=== PATIENT | female | born 1955 | race Caucasian/White ===

== ENCOUNTER 2016-11-17 13:05 | Outpatient (CLI) ==
--- NOTE | 2016-11-17 15:19 | DI ---
EXAM: Three views of the thoracic spine HISTORY: Back pain. COMPARISON: Chest x-ray 01/09/2016 FINDINGS: The thoracic spine demonstrates kyphosis with compression fracture at T9 superior endplate which was not identified on prior chest x-ray. There is a questionable new superior endplate deform ity at T12 not present on prior chest x-ray. The wedge deformity at T6, T7 and T8 are unchanged. Th e lungs are hyperinflated IMPRESSION: 1. New mild compression deformity at T9 which is new since Chest x-ray 01/09/2016. Questionable mil d superior endplate deformity at T12 is also new in comparison to prior study. 2. Compression deformities from T6-T8 are unchanged from prior chest x-ray.
--- NOTE | 2016-11-17 15:19 | DI ---
EXAM: Cervical spine three view HISTORY: Dorsalgia COMPARISON: None TECHNIQUE: Three views cervical spine were performed FINDINGS: Evaluation limited due to accentuated kyphosis. C6 is poorly visualized on the lateral v iew and C7 is not visualized on the lateral view. Visualized vertebral bodies normal height. No fr acture visualized. No subluxation. Multilevel facet and uncovertebral hypertrophy. Prevertebral s oft tissues appear normal. Bilateral carotid vascular calcifications. IMPRESSION: Chronic discogenic degenerative disease and facet arthrosis. Evaluation limited due to accentuated kyphosis. C6 poorly visualized and C7 not visualized on the lateral view.
--- NOTE | 2016-11-17 15:22 | DI ---
EXAM: Radiographs, lumbar spine HISTORY: Back pain. COMPARISON: None available. TECHNIQUE: Three views. FINDINGS: The bones are demineralized which limit evaluation fracture. Alignment is normal. Mild superior endplate compression deformity of L4 noted. There appear to be mild compression deformitie s of T12 and L1. No subluxation identified. Disc heights are normal. Mild multilevel facet arthrop athy is present. There is nonspecific gaseous distension of the colon. Air seen throughout multipl e small bowel loops with air-fluid levels present. Atherosclerotic calcifications noted. IMPRESSION: 1. Age indeterminate mild compression deformities of T12, L1 and L4. 2. Mild facet arthropathy. 3. Nonspecific bowel gas pattern. Follow-up as warranted.
== END 2016-11-17 13:06 | disposition home or self-care (01) ==
LOC: RAD 13:05
PROVIDERS: ATTEND Physician Assistant Medical
DX: M54.9 Dorsalgia, unspecified (principal)

== ENCOUNTER 2017-01-17 12:45 | Outpatient (CLI) ==
--- NOTE | 2017-01-18 02:40 | MRI ---
EXAM: MRI lumbar spine without IV contrast. DATE: 17 January 2017. HISTORY: Low back pain. TECHNIQUE: Sagittal and axial T1W and T2W sequences of the lumbar spine along with sagittal IR and coronal T2W sequences were obtained using 1.2 Nell magnet. No IV contrast. COMPARISON: LS spine series 11/17/2016. T-spine series 17 November 2016. PA/lateral chest 09 January 2016. FINDINGS: There are five [id number] lumbar vertebral. Endplate indentations, horizontal fract ure lines (T1W dark bands), adjacent marrow hyperintensity, and vertebral body height loss (especial ly centrally) are observed at each vertebral from T11 through L5. Most of the vertebra and minimal to mild height loss, although there is moderate central height loss at L1 and L4. T1W bone marrow s ignal is brighter than typically seen. Intervertebral discs are normal in height. A minor horizont al fracture line is identified near the anterior aspect of the superior endplate of S1. No other sa cral fracture is detected. SI joints are unremarkable. Conus medullaris terminates at L1-2. Visib le spinal cord is normal. Small retroperitoneal lymph nodes are observed without definitive lymphadenopathy. There is no aort ic aneurysm. Atherosclerotic plaques are present in the aortic wall. Psoas muscles are normal. Th ere is moderate bilateral posterior paraspinal muscle atrophy. Visible portions of the gallbladder, spleen, and adrenal glands are unremarkable. A T2W bright, T1W dark, 5 mm subcapsular focus in the anterior cortex upper pole right kidney is likely a cyst. A T2W bright, T1W dark, 7 mm subcapsular focus in the posterior cortex upper pole left kidney is likely a benign cyst. T2W bright 5.8 cm fo cus appears to extend off the anterior cortex midzone/lower pole left kidney. A T2W bright, 6.7 mm focus between the IVC and aorta at the T12 level may represent enlargement of a lymphatic duct. On c oronal sequence, the right lobe liver appears to measure 18.7 cm in length. No bowel obstruction or neoplasm is identified. Segmental analysis: T11-12: Sagittal images reveal minor posterior cortical buckling at the superior endplate of T12, b ut no cord compression or central stenosis. Minimal right and mild left foraminal narrowing is note d. T12-L1: Posterior cortical buckling near the L1 superior endplate does not contact the cord or caus e central stenosis. Each foramen is patent. L1-2: Minor posterior cortical buckling near the superior endplate of L2 does not cause conus compr ession or central stenosis. Minor right foraminal narrowing is due to minor facet arthropathy. L2-3: Minimal bilateral foraminal to far lateral disc bulges do not cause central stenosis or signi ficant foraminal stenosis. L3-4: Minimal bilateral foraminal to far lateral disc bulges, mild facet arthropathy and mild ligam entum flavum hypertrophy cause minor bilateral foraminal narrowing. No central canal stenosis. L4-5: Small concentric disc bulge, minor posterior cortical buckling at the inferior endplate of L4 , minor facet arthropathy and mild ligamentum flavum hypertrophy cause minor right and mild left for aminal stenoses. No central canal stenosis. L5-S1: Minimal posterior to foraminal disc bulge and minor facet disease cause minor right and mini mal/mild left foraminal narrowing. No central canal stenosis. IMPRESSIONS: 1. Subcortical endplate fractures at each level from T11 to S1 are subacute to early chronic. The most recent fracture appears to be near the L3 superior endplate. 2. Marrow signal suspicious for osteoporosis. 3. No lumbar spine central canal stenosis. 4. Multilevel foraminal narrowing (minor/mild). 5. Marked abdominal aortic atherosclerosis. 6. Bilateral renal lesions - likely benign cysts. 7. Hepatomegaly - etiology uncertain. 8. Possible mildly dilated retroperitoneal lymphatic duct at T12.
== END 2017-01-17 12:46 | disposition home or self-care (01) ==
LOC: RAD 12:45
PROVIDERS: ATTEND Nurse Practitioner
DX: M54.5 Low back pain (principal)

== ENCOUNTER 2017-02-11 12:54 | Outpatient (CLI) ==
--- NOTE | 2017-02-11 13:40 | DEXA ---
EXAM: Bone Densitometry DEXA HISTORY: Unspecified fracture of unspecified lumbar, initial encounter for close fracture COMPARISON: None FINDINGS: DEXA scan of the lumbar spine was performed. Quality of the study is good. Bone mineral density is 0.694 grams per square centimeter. T-score is negative 4.1. Z-score is negative 1.8. DEXA scan right and left hip was performed. Quality of the study is good. Bone mineral density lida n total is 0. 502 grams per square centimeter. T-score is negative 4.0. Z-score is negative 2.4. B one mineral density of the femoral neck mean is 0.529 with a T score of negative 3.7 and a Z score o f negative 1.8. IMPRESSION: 1. Lumbar spine: Osteoporosis. 2. Left hip: Osteoporosis 3. Left femoral neck: Osteoporosis 4. 10 year risk for major osteoporotic fracture is 29.2% and for hip fracture is 13.9%. Reference Values according to World Health Organization criteria: T score greater than -1 is normal T score -1 to -2.5 is osteopenia T score less than -2.5 is osteoporosis.
== END 2017-02-11 12:55 | disposition home or self-care (01) ==
LOC: RAD 12:54
PROVIDERS: ATTEND Physician Assistant Medical
DX: S32.009A Unspecified fracture of unspecified lumbar vertebra, initial encounter for closed fracture (principal)

== ENCOUNTER 2017-05-05 11:58 | Outpatient (CLI) ==
--- NOTE | 2017-05-05 12:29 | DI ---
EXAM: Chest two view, frontal and lateral views. HISTORY: Chronic obstructive pulmonary disease. COMPARISON: 01/09/2016. FINDINGS: Heart size is normal. Lungs are hyperexpanded with increased interstitial markings. No consolidation, pleural effusion or pneumothorax identified. Compression deformities of multiple mid thoracic vertebral bodies again noted. Old left rib fracture noted. Since the prior study, there h as been no significant interval change. IMPRESSION: Stable appearance of the chest consistent with chronic obstructive pulmonary disease.
== END 2017-05-05 11:59 | disposition home or self-care (01) ==
LOC: RAD 11:58
PROVIDERS: ATTEND Internal Medicine Pulmonary Disease
DX: J44.9 Chronic obstructive pulmonary disease, unspecified (principal)

== ENCOUNTER 2019-03-15 14:06 | Outpatient (CLI) ==
--- NOTE | 2019-03-18 12:03 | MRI ---
EXAM: MRI of the thoracic spine . HISTORY:Thoracic pain. COMPARISON:None of this type. MRI lumbar spine dated 01/17/2017. PROCEDURE: Multiplanar, multisequence MRI protocol including sagittal T1-weighted, sagittal T2-weigh sd, sagittal inversion recovery, coronal T2-weighted, axial T1-weighted and axial T2-weighted images . FINDINGS: Vertebral alignment demonstrates marked (approximately 62 degrees) accentuation of thoraci c kyphosis apex at T7-8 associated with multiple chronic wedge-type compression deformities from T6-T 9. There is a 2.5 mm retrolisthesis of T2 with respect to T3. Vertebral body height demonstrates add itional chronic loss of disc height at T5 and T10 and T12 and concave depression of the endplates wit hout significant loss of vertebral height at T11. Marrow signal is bright on T1W and T2W images sug gesting osteoporosis. The intervertebral discs demonstrate evidence of desiccation and loss of disc height at multiple levels particular from T4-5 through T9-10. The caliber of the spinal canal is int rinsically within normal limits. The spinal cord is normal in caliber and signal. The conus medulla ris is normal in level and contour and signal. The prevertebral and paraspinous soft tissues appear to be within normal limits. Segmental analysis: C7-T1: The spinal canal is normal in caliber. The spinal cord is not significantly displaced or de formed. The neural foramina are not stenosed. T1-T2: The spinal canal is normal in caliber. The spinal cord is not significantly displaced or de formed. The neural foramina are not stenosed. T2-T3: There is a modest pseudodisc bulge impressing the ventral thecal sac at this level. The spina l canal is normal in caliber. The pseudodisc bulge abuts the ventral cord. There is mild foraminal stenosis. T3-T4: The spinal canal is normal in caliber. The spinal cord is not significantly displaced or de formed. The neural foramina are not stenosed. T4-T5: The spinal canal is normal in caliber. The spinal cord is not significantly displaced or de formed. The neural foramina are not stenosed. T5-T6: The spinal canal is normal in caliber. The spinal cord is not significantly displaced or de formed. The neural foramina are not stenosed. T6-T7: The spinal canal is normal in caliber. The spinal cord is not significantly displaced or de formed. The neural foramina are not stenosed. T7-T8: There is a broad-based disc bulge impressing ventral thecal sac at this level. The spinal can al is normal in caliber. The disc abuts the ventral cord. The neural foramina are not stenosed. T8-T9: There is a broad-based disc bulge with a left paramedian protrusion impressing ventral thecal sac at this level. The central canal is not stenosed. The protrusion abuts the ventral cord. The s brandy cord is not significantly displaced or deformed. The neural foramina are not stenosed. T9-T10: The spinal canal is normal in caliber. The spinal cord is not significantly displaced or d eformed. There is mild foraminal stenosis. T10-T11: The spinal canal is normal in caliber. The spinal cord is not significantly displaced or deformed. There is mild foraminal stenosis. T11-T12: There is a modest spondylitic ridge impressing the ventral thecal sac at this level. The spinal cord is not significantly displaced or deformed. The neural foramina are not stenosed. T12-L1: There is a modest spondylitic ridge impressing the ventral thecal sac at this level. The s brandy cord is not significantly displaced or deformed. The neural foramina are not stenosed. IMPRESSION: 1.The MRI examination demonstrates marked accentuation of mid thoracic kyphosis associated with multi ple chronic wedge-type compression deformities from T6-T9. There is an additional 2.5 mm retrolisthe sis of T2 with respect to T3 and evidence of multilevel degenerative disc disease. Additional detail s are contained in the report. 2.The central canal is not significantly narrowed at any of the reviewed levels. The disc abuts the ventral cord at T2-3 due to retrolisthesis and at T7-8 and T8-9 due to the marked kyphosis. 3.There is mild foraminal stenosis at T2-3, T9-10 and T10-11. 4.The thoracic cord appears normal in caliber and contour and signal.
== END 2019-03-15 14:07 | disposition home or self-care (01) ==
LOC: RAD 14:06
PROVIDERS: ATTEND Physician Assistant Surgical
DX: M54.6 Pain in thoracic spine (principal)